=== PATIENT | male | born 1975 | race Two or more races ===

== ENCOUNTER 2020-10-21 02:18 | Outpatient (CLI) | payer OTHER | END 2020-10-21 15:00 | disposition home or self-care (01) | LOC: PPH VACUNA 02:18 | DX: Z23 Encounter for immunization (principal) ==

== ENCOUNTER 2021-09-19 09:00 | Outpatient (CLI) | payer OTHER | END 2021-09-19 09:15 | disposition home or self-care (01) | LOC: PPH VACUNA 09:00 | PROVIDERS: ATTEND Emergency Medicine Pediatric Emergency Medicine | DX: Z23 Encounter for immunization (principal) ==

== ENCOUNTER 2022-07-02 12:27 | Day surgery (SDC) | payer OTHER ==
[~2022-07-02] VITALS: Ht 180.3 cm; Wt 106.6 kg
[~2022-07-02 12:27] MED LIST: COZAAR100 MG PO; CRESTOR10 MG PO; HYDRODIURIL12.5 MG PO; NORVASC2.5 MG PO
[2022-07-02] MEDS ORDERED: TYLENOL ARTHRI650 MG PO (19:20)
[2022-07-02] MEDS ORDERED: MIRALAX17 GM PO (19:20)
[2022-07-02] MEDS ORDERED: NEURONTIN300 MG PO (19:20)
[2022-07-02] MEDS ORDERED: ULTRAM50 MG PO (19:20)
== END 2022-07-03 00:10 | disposition home or self-care (01) ==
LOC: CIR.AMB 12:27
PROVIDERS: ATTEND Surgery
DX: K41.30 Unilateral femoral hernia, with obstruction, without gangrene, not specified as recurrent (principal); K40.90 Unilateral inguinal hernia, without obstruction or gangrene, not specified as recurrent; K42.9 Umbilical hernia without obstruction or gangrene; Z20.822 Contact with and (suspected) exposure to COVID-19; I10 Essential (primary) hypertension; G47.33 Obstructive sleep apnea (adult) (pediatric); Z99.89 Dependence on other enabling machines and devices; R73.03 Prediabetes
CPT/HCPCS: 49553; 49650; 49652; C1781